=== PATIENT | female | born 1995 | race Caucasian/White ===

== ENCOUNTER 2022-01-24 08:11 | Outpatient (CLI) | payer BC ==
[2022-01-24 21:28] LABS: SARS-CoV-2 PCR by NAA Not Detected (NotDetected)
== END 2022-01-24 08:12 | disposition home or self-care (01) ==
LOC: CSHLAB 08:11
PROVIDERS: ATTEND Obstetrics & Gynecology
DX: Z20.822 Contact with and (suspected) exposure to COVID-19 (principal)
CPT/HCPCS: U0003; U0005

== ENCOUNTER 2022-01-24 17:31 | Inpatient (IN) | payer BC ==
[~2022-01-24 17:31] MED LIST: Acetaminophen 500 MG TAB PO PRN; Bupivacaine/Epinephrine 0.25% 30 ML VIAL ONE; Butorphanol Tartrate 1 MG/ML VIAL SLOW IVP PRN; Diphenoxylate HCl/Atropine Tablet PO PRN; Docusate 100 MG CAP PO PRN; HYDROcodone/Acetaminophen 5/325 mg Tablet PO PRN; Ibuprofen 800 MG TAB PO PRN; Lidocaine 1% (PF) 30 ML VIAL SC PRN; Misoprostol 200 MCG TAB PR PRN; NS w/ Oxytocin 30 units 500 ML IV SCH; Ondansetron PF 4 MG/2 ML Vial IVP PRN; Promethazine HCl 25 MG/ML VIAL IM PRN; Zolpidem Tartrate 5 MG TAB PO PRN; hydrALAZINE 20 MG/ML VIAL SLOW IVP PRN
[2022-01-24 19:04] VITALS: BMI 30.4
[2022-01-24 19:09] LABS: Hemoglobin 11.3 g/dL (12.0-15.5); Mean Corpuscular HGB CONC 34.6 g/dL (32.0-36.0); Mean Corpuscular Hemoglobin 30.5 pg (27.0-33.0); Mean Corpuscular Volume 88.4 fl (81.6-98.3); Mean Platelet Volume 11.4 fl (7.4-10.4); Platelet Count 153 10x3/uL (150-450); RBC Distribution Width 12.3 % (11.5-14.5); White Blood Cell (WBC) Count 10.2 10x3/uL (3.5-10.5)
[2022-01-24 19:46] LABS: HIV (1/2) Antibody/Antigen Non-Reactive (NonReactive); Hep B Surf Ag Non-Reactive S/CO (NonReactive)
[2022-01-24 19:48] LABS: Syphilis Antibody Nonreactive (Nonreactive); Syphilis Antibody Index 0.05 S/CO (<1.00 Non-Reactive)
[2022-01-24 19:53] LABS: HBSAg Index 0.24 S/CO (0-0.99)
[2022-01-24] MEDS: Lactated Ringer's 1,000 ML IV SCH (22:09)
[2022-01-25] MEDS ORDERED: Fentanyl 2 mcg/Bup 0.1% Cadd 100 ML ONE (03:21)
[2022-01-25] MEDS ORDERED: diphenhydrAMINE 50 MG/ML VIAL IVP PRN (03:44)
[2022-01-25] MEDS ORDERED: Acetaminophen 325 MG TAB PO PRN (03:44)
[2022-01-25] MEDS ORDERED: Naloxone HCl 0.4 mg/ml Vial IVP PRN ×2 (03:44)
[2022-01-25] MEDS ORDERED: Ondansetron PF 4 MG/2 ML Vial IVP PRN ×2 (03:44→07:35)
[2022-01-25] MEDS ORDERED: ePHEDrine Sulfate 50 MG/10 ML VIAL SLOW IVP PRN (03:44)
[2022-01-25] MEDS ORDERED: Promethazine HCl 25 MG/ML VIAL IM PRN (03:44)
[2022-01-25] MEDS ORDERED: Lactated Ringer's 500 ML IV PRN (03:44)
[2022-01-25] MEDS ORDERED: Moisturizing Cream (Eucerin) 113 GM JAR TOP PRN (03:44)
[2022-01-25] MEDS ORDERED: Communication Order-Pharmacy FS SCH (03:45)
[2022-01-25] MEDS ORDERED: Fentanyl 2 mcg/Bupivacaine 0.1% Cassette 100 ML EPIDURAL SCH (03:45)
[2022-01-25] MEDS: Lactated Ringer's 1,000 ML IV SCH ×2 (04:03→19:27)
[2022-01-25] MEDS ORDERED: HYDROcodone/Acetaminophen 5/325 mg Tablet PO PRN ×2 (07:35)
[2022-01-25] MEDS ORDERED: Zolpidem Tartrate 5 MG TAB PO PRN (07:35)
[2022-01-25] MEDS ORDERED: Preparation H Ointment 28 GM TUBE PR PRN (07:35)
[2022-01-25] MEDS ORDERED: Bisacodyl 10 MG SUPP PR PRN (07:35)
[2022-01-25] MEDS ORDERED: Milk Of Magnesia 30 ML UDCUP PO PRN (07:35)
[2022-01-25] MEDS ORDERED: Lanolin Ointment 7 GM TUBE TOP PRN (07:35)
[2022-01-25] MEDS ORDERED: diphenhydrAMINE 25 MG CAP PO PRN (07:35)
[2022-01-25] MEDS ORDERED: Benzocaine-Menthol 82.5 ML CAN TOP PRN (07:35)
[2022-01-25] MEDS ORDERED: Misoprostol 200 MCG TAB VAG PRN (07:35)
[2022-01-25] MEDS ORDERED: hydrALAZINE 20 MG/ML VIAL SLOW IVP PRN (07:35)
[2022-01-25] MEDS ORDERED: Boostrix 0.5 ML (Tdap) VIAL IM ONE (07:35)
[2022-01-25] MEDS ORDERED: NS w/ Oxytocin 30 units 500 ML IV SCH (07:45)
[2022-01-25] MEDS: Ferrous Sulfate 325 MG TAB PO SCH ×2 (10:40→18:16)
[2022-01-25] MEDS: Docusate 100 MG CAP PO SCH ×2 (10:40→22:09)
[2022-01-25] MEDS: Prenatal Vitamin 1 TAB PO SCH (10:40)
[2022-01-25] MEDS: Ibuprofen 800 MG TAB PO SCH ×2 (13:10→22:10)
[2022-01-25] MEDS: Enoxaparin Sodium 40 MG/0.4 ML SYRINGE SC SCH (18:26)
[2022-01-26] MEDS: Ibuprofen 800 MG TAB PO SCH ×3 (05:30→21:16)
[2022-01-26 05:46] LABS: #Monocytes 0.5 10x3/uL (0.0-1.1); #Neutrophils 6.4 10x3/uL (1.5-8.4); %Basophils 0.3 % (0.0-2.0); %Eosinophils 0.4 % (0.0-6.0); %Lymphocytes 23.5 % (18.0-47.0); %Monocytes 5.6 % (0.0-10.0); Hemoglobin 10.2 g/dL (12.0-15.5); Mean Corpuscular HGB CONC 34.6 g/dL (32.0-36.0); Mean Corpuscular Hemoglobin 30.6 pg (27.0-33.0); Mean Corpuscular Volume 88.6 fl (81.6-98.3); Platelet Count 138 10x3/uL (150-450); RBC Distribution Width 12.7 % (11.5-14.5); Red Blood Cell (RBC) Count 3.33 10x6/uL (3.90-5.03); White Blood Cell (WBC) Count 9.3 10x3/uL (3.5-10.5)
[2022-01-26] MEDS: Ferrous Sulfate 325 MG TAB PO SCH ×2 (08:48→18:16)
[2022-01-26] MEDS: Docusate 100 MG CAP PO SCH ×2 (08:53→21:16)
[2022-01-26] MEDS: Prenatal Vitamin 1 TAB PO SCH (08:53)
[2022-01-26] MEDS ORDERED: Witch Hazel-Glycerin 1 EACH JAR TOP PRN (13:49)
[2022-01-26] MEDS: Enoxaparin Sodium 40 MG/0.4 ML SYRINGE SC SCH (18:35)
[2022-01-27] MEDS: Ibuprofen 800 MG TAB PO SCH (05:20)
[2022-01-27] MEDS: Ferrous Sulfate 325 MG TAB PO SCH (08:35)
[2022-01-27] MEDS: Prenatal Vitamin 1 TAB PO SCH (08:35)
[2022-01-27] MEDS: Docusate 100 MG CAP PO SCH (08:35)
[2022-01-27 10:11] VITALS: BP 109/60; TEMP 98.1
== END 2022-01-27 12:28 | disposition home or self-care (01) | DRG 806 ==
LOC: CSHLD 17:31 → CSHPP 01-25 10:10
PROVIDERS: ADMIT Obstetrics & Gynecology; ATTEND Obstetrics & Gynecology
PROC: 10E0XZZ Delivery of Products of Conception, External Approach (ICD-10-PCS; principal; 2022-01-25)
PROC: 3E0334Z Introduction of Serum, Toxoid and Vaccine into Peripheral Vein, Percutaneous Approach (ICD-10-PCS; 2022-01-25)
PROC: 10907ZC Drainage of Amniotic Fluid, Therapeutic from Products of Conception, Via Natural or Artificial Opening (ICD-10-PCS; 2022-01-25)
PROC: 0UQMXZZ Repair Vulva, External Approach (ICD-10-PCS; 2022-01-25)
PROC: 0W8NXZZ Division of Female Perineum, External Approach (ICD-10-PCS; 2022-01-25)
DX: O26.893 Other specified pregnancy related conditions, third trimester (principal); O99.12 Other diseases of the blood and blood-forming organs and certain disorders involving the immune mechanism complicating childbirth; Z37.0 Single live birth; D68.51 Activated protein C resistance; Z67.11 Type A blood, Rh negative; Z3A.38 38 weeks gestation of pregnancy; Z86.711 Personal history of pulmonary embolism; Z88.5 Allergy status to narcotic agent; O99.02 Anemia complicating childbirth; D64.9 Anemia, unspecified; Z90.89 Acquired absence of other organs; Z79.899 Other long term (current) drug therapy; Z88.6 Allergy status to analgesic agent; O71.82 Other specified trauma to perineum and vulva
CPT/HCPCS: 36415; 51702; 85025; 85027; 85461; 86780; 86850; 86870; 86900; 86901; 87340; 87389; 90384; 96372; J1650; J2405; J2590; J7120; U0003; U0005